=== PATIENT | male | born 1990 | race Caucasian/White ===

== ENCOUNTER 2020-12-22 19:37 | Emergency (ER) | payer BC, SELFPAY ==
--- NOTE | ~2020-12-22 | XR_ITS ---
EXAMINATION: XR TIBIA AND FIBULA, RIGHT CLINICAL INFORMATION: Right leg injury with pain and swelling COMPARISON: None TECHNIQUE: AP and lateral views of the right tibia and fibula were obtained. FINDINGS: The bones and soft tissues are normal. No fracture. No osseous lesions. A small bone island is noted in the lateral tibial metaphysis. XR/XR tibia fibula RT 2V IMPRESSION: No acute disease. No evidence of injury.
[2020-12-22 20:57] VITALS: BP 139/84; PULSE 97; RESP 18; TEMP 37.2; O2SAT 100
[2020-12-22 21:05] VITALS: BP 139/84; PULSE 97; RESP 18; TEMP 37.2; O2SAT 100; BMI 25.7
--- NOTE | 2020-12-22 21:16 | PC.NURSE ---
ICE PACK GIVEN.
--- NOTE | 2020-12-22 21:40 | ED.LOWEXIN ---
HPI - Extremity Injury (Lower) General Chief Complaint: Extremity Injury, Lower Stated Complaint: FALL LEG PAIN Time Seen by Provider: 12/22/20 21:40 Source: patient Mode of arrival: ambulatory History of Present Illness HPI Narrative: 30-year-old male who is presents after a garden cart tilted and hit the medial aspect of his right lower extremity a number of hours ago and states his last tetanus was over 7 years ago. Otherwise, patient endorses full range of motion and able to bear weight. Related Data Allergies Allergy/AdvReac Type Severity Reaction Status Date / Time No Known Allergies Allergy Verified 12/22/20 21:05 Review of Systems Review of Systems: Pertinent positives and negatives as stated in HPI 10 point review systems is otherwise negative. PMFSH Past Medical History Source: nursing notes reviewed Medical History No known health problems Patellar sleeve fracture of left knee Social History Social History Advance Directives: No Advance Directives Information Provided: No Physical Exam Vital Signs: Vital Signs: Last Vital Signs Temp 99.0 F 12/22/20 21:05 Pulse 97 12/22/20 21:05 Resp 18 12/22/20 21:05 BP 139/84 12/22/20 21:05 Pulse Ox 100 12/22/20 21:05 Body Mass Index 25.7 VITAL SIGNS: Reviewed. GENERAL: Well developed, well nourished, in no acute distress. HEAD: Normocephalic/atraumatic EYES: PERRLA, EOMI OROPHARYNX: no oral lesions noted, posterior pharynx clear NECK: Supple, no adenopathy LUNGS: Normal breath sounds. No adventitious sounds or accessory muscle use. SpO2<100> CARDIOVASCULAR: Regular rate and rhythm without noted murmurs ABDOMEN: Soft, non-tender, non-distended with bowel sounds. RIGHT LOWER EXTREMITY: Superficial abrasions to medial aspect of lower leg, capillary refill less than 3 seconds, hemostatic NEUROLOGIC: Alert and oriented x 4. Course Course Course Narrative: 30-year-old male with history and clinical presentation consistent with superficial abrasions to right lower extremity without evidence fracture or involvement of deep structures. Patient will receive Tdap here in the emergency department and upon negative imaging will be discharged home and given follow-up with his primary care provider. Review of imaging is negative for any acute fractures or dislocations. Discharge Plan Discharge Clinical Impression: Abrasion Patient Disposition: Home, Self-Care Instructions: Diphtheria/Acellular Pertussis/Tetanus Booster Vaccine (Tdap) (By..., Abrasion (ED) Additional Instructions: Recommend taking [id number] Tylenol/ibuprofen as directed on the outside packaging for pain control. Follow-up with your primary care provider in the next 2-3 days for re-evaluation. Do not hesitate to return to the emergency department should you develop any worsening redness, swelling, pain on weight-bearing, purulence drainage Referrals: Physician,Unknown [Primary Care Provider] - 2 days
[2020-12-22] MEDS: Diphth,Pertus(ACell),Tet Adult 0.5 ML SYRINGE IM (22:07)
[2020-12-22] MEDS: Bacitracin Oint 14 GM TUBE 1 APPL TOPICAL (22:08)
== END 2020-12-22 22:13 | disposition home or self-care (01) ==
PROVIDERS: Emergency Provider Student in an Organized Health Care Education/Training Program
DX: S80.811A Abrasion, right lower leg, initial encounter (principal); M79.604 Pain in right leg; W27.8XXA Contact with other nonpowered hand tool, initial encounter; Y93.H2 Activity, gardening and landscaping; Y92.007 Garden or yard of unspecified non-institutional (private) residence as the place of occurrence of the external cause; Y99.9 Unspecified external cause status
CPT/HCPCS: 73590; 90471; 90715; 99284

== ENCOUNTER 2022-11-13 18:29 | Emergency (ER) | payer BC, SELFPAY ==
--- NOTE | ~2022-11-13 | XR_ITS ---
EXAMINATION: XR WRIST, RIGHT XR HAND, RIGHT CLINICAL INFORMATION: Fourth and fifth digit pain, status post punching a wall. COMPARISON: None available. TECHNIQUE: 4 views of the right wrist/hand. FINDINGS: No acute fractures or subluxation. No significant degenerative changes, erosions or chondrocalcinosis. No unexpected radiopaque foreign bodies. XR/XR hand wrist RT IMPRESSION: No acute fractures or subluxation.
--- NOTE | 2022-11-13 18:44 | ED_ITS ---
HPI - Extremity Injury (Upper) General Chief Complaint: Extremity Injury, Upper <JULIA Browne - Last Filed: 11/13/22 18:47> Stated Complaint: hand injury, broken finger? <JULIA Browne - Last Filed: 11/13/22 18:47> Time Seen by Provider: 11/13/22 19:45 <JULIA Browne - Last Filed: 11/13/22 18:47> Source: patient <Ana Lopez MD - Last Filed: 11/13/22 20:02> Mode of arrival: ambulatory <Ana Lopez MD - Last Filed: 11/13/22 20:02> Limitations: no limitations <Ana Lopez MD - Last Filed: 11/13/22 20:02> History of Present Illness HPI narrative: 32-year-old male right handed came in for evaluation of right hand pain after punched a wall. Patient is going through a divorce and stressful events with his patient got angry today and punched a wall with his right hand causing pain to the 4th and 5th MCP joints pain, patient still able to move his right hand, no SI, no HI, no hallucination. Patient admitted that punching the wall was over reacting to the situation he usually can control himself better than this. <Ana Lopez MD - Last Filed: 11/13/22 20:02> Related Data Home Medications: Previous Rx's Medication Instructions Recorded hydroxyzine pamoate 25 mg capsule 25 mg PO TID PRN anxiety 14 days 11/06/22 (Vistaril) #42 caps mirtazapine 7.5 mg tablet 7.5 mg PO BEDTIME 30 days #30 tabs 11/06/22 <JULIA Browne - Last Filed: 11/13/22 18:47> Allergies/Adverse Reactions: Allergies Allergy/AdvReac Type Severity Reaction Status Date / Time No Known Allergies Allergy Verified 11/13/22 18:45 <JULIA Browne - Last Filed: 11/13/22 18:47> Review of Systems Review of Systems: All other systems are reviewed and are negative Constitutional: Reports as per HPI and Reports no additional constitutional complaints Eyes: Reports as per HPI and Reports no additional eye complaints Reports system reviewed and no additional complaints, except as documented Cardiovascular: Reports as per HPI and Reports no additional cardiovascular complaints Respiratory: Reports as per HPI and Reports no additional respiratory complaints Gastrointestinal: Reports as per HPI and Reports no additional gastrointestinal complaints Genitourinary: Reports no additional female genitourinary complaints Musculoskeletal: Reports no additional musculoskeletal complaints Skin/Breast: Reports system reviewed and no additional complaints, except as docu Psychiatric: Reports no additional psychiatric complaints Endocrine: Reports no additional endocrine complaints Hematologic/Lymphatic: Reports no additional hematologic/lymphatic complaints Allergic/Immunologic: Reports no additional allergic/immunologic complaints Reports system reviewed and no additional complaints, except as documented and Reports Abnormal speech present <Ana Lopez MD - Last Filed: 11/13/22 20:02> [facility] Past Medical History Medical History: Medical History No known health problems Patellar sleeve fracture of left knee <JULIA Browne - Last Filed: 11/13/22 18:47> Social History Social History: Social History Patient Tobacco Use Status: Never used Tobacco Advance Directives: No Advance Directives Information Provided: No <JULIA Browne - Last Filed: 11/13/22 18:47> Physical Exam Vital Signs: Vital Signs: Last Vital Signs Temp 98.2 F 11/13/22 18:45 Pulse 92 11/13/22 18:45 Resp 18 11/13/22 18:45 BP 152/97 H 11/13/22 18:45 Pulse Ox 99 11/13/22 18:45 O2 Del Method 11/13/22 18:45 BMI result Body Mass Index 21.2 <JULIA Browne - Last Filed: 11/13/22 18:47> Vital Signs: Last Vital Signs Temp 98.2 F 11/13/22 18:45 Pulse 92 11/13/22 18:45 Resp 18 11/13/22 18:45 BP 152/97 H 11/13/22 18:45 Pulse Ox 99 11/13/22 18:45 O2 Del Method 11/13/22 18:45 BMI result Body Mass Index 21.2 Vital signs have been reviewed as appeared to be correct. Blood pressure normal. Heart rate normal. Respiration rate normal. Temperature normal. Oxygen saturation normal. <Ana Lopez MD - Last Filed: 11/13/22 20:02> Appearance: Alert. Oriented X3. No acute distress. Head: Normal external exam. Normocephalic. Atraumatic. No Mathis signs noted. No raccoon eyes noted Eyes: PERRLA. EOMI. Conjunctiva and sclera normal. Eyelids normal. ENT: TM's Normal. Pharynx normal. Uvula midline. Moist mucous membranes. No trismus noted. No drooling noted. No muffled voice noted. Neck: Normal inspection. Neck supple. FROM. No adenopathy. Thyroid Normal. No meningeal signs. No neck mass noted. CVS: Normal heart rate and rhythm. Heart sound normal. No murmurs noted. Pulses normal throughout. Respiratory: No respiratory distress. Painless inspiration. Breath sounds normal. No wheezes/rales/rhonchi noted. Chest nontender. No accessory muscle usage noted or decreased air movement noted. Abdomen: Soft and nontender. Bowel sounds normal in all 4 quadrants. No distention noted. No organomegaly noted. No visible injury noted. Back: No CVA tenderness. Full range of motion noted. Skin: Skin warm and dry. Normal skin color. Normal skin turgor. No rashes/lesions/lacerations noted. Extremities: Mild tenderness over the right 4th and 5th MCPs with no deformity or step-off, neurovascularly intact. Neuro: Oriented X 3. Cranial nerve exam: II-XII are grossly intact No motor deficit. No sensory deficit. Reflexes normal. <Ana Lopez MD - Last Filed: 11/13/22 20:02> Course Course Course Narrative: RME--32yo M w/no sig PMHx presenting to ED c/o R hand pain s/p punching wall [employer]. +ttp to R 4-5th metacarpals. NV intact. Finger to thumb opposition intact XRs ordered <JULIA Browne - Last Filed: 11/13/22 18:47> Medical Decision Making Differential Diagnosis Differential Diagnoses: The differential diagnosis associated with the presentation includes (Right hand fracture, contusion, psychosis, depression, anger control problems) <Ana Lopez MD - Last Filed: 11/13/22 20:02> Independent Interpretation I performed an independent interpretation of an: Plain X-Ray (Right hand: No acute fracture, subluxation.) <Ana Lopez MD - Last Filed: 11/13/22 20:02> Radiology Impression Discussion of test interpretation with radiology: I have reviewed the radiologist's reading. <Ana Lopez MD - Last Filed: 11/13/22 20:02> Discharge Plan Discharge Clinical Impression: Contusion of hand, right <JULIA Browne - Last Filed: 11/13/22 18:47> Patient Disposition: Home, Self-Care <JULIA Browne - Last Filed: 11/13/22 18:47> Instructions: Contusion in Adults (ED) <JULIA Browne - Last Filed: 11/13/22 18:47> Additional Instructions: Take ibuprofen 200 mg tablets [id number] every 6 hours if needed for pain. <JULIA Browne - Last Filed: 11/13/22 18:47> Prescriptions: No Action mirtazapine 7.5 mg tablet 7.5 mg PO BEDTIME 30 Days Qty: 30 0RF hydroxyzine pamoate [Vistaril] 25 mg capsule 25 mg PO TID PRN (Reason: anxiety) 14 Days Qty: 42 0RF <JULIA Browne - Last Filed: 11/13/22 18:47> Stand Alone Forms: Work/School Release <JULIA Browne - Last Filed: 11/13/22 18:47>
[2022-11-13 18:45] VITALS: BP 152/97; PULSE 92; RESP 18; TEMP 36.8; O2SAT 99; BMI 21.2
== END 2022-11-13 20:37 | disposition home or self-care (01) ==
PROVIDERS: Emergency Provider Emergency Medicine; PCP Internal Medicine
DX: S60.221A Contusion of right hand, initial encounter (principal); M79.641 Pain in right hand; X58.XXXA Exposure to other specified factors, initial encounter; Y93.9 Activity, unspecified; Y92.9 Unspecified place or not applicable; Y99.9 Unspecified external cause status
CPT/HCPCS: 73110; 73130; 99282; 99283

== ENCOUNTER 2023-01-04 08:35 | Emergency (ER) | payer BC, SELFPAY ==
[2023-01-04 08:40] VITALS: BP 126/81; PULSE 90; RESP 16; TEMP 37.2; O2SAT 98; BMI 24.8
--- NOTE | 2023-01-04 09:01 | ED_ITS ---
HPI - General Adult General Chief complaint: Wound/Laceration Stated complaint: L hand lac Time Seen by Provider: 01/04/23 09:00 Source: patient Mode of arrival: ambulatory Limitations: no limitations History of Present Illness HPI narrative: Patient is a 32 year old assigned male at with no reported medical history presenting to the emergency department today with a left hand laceration. Patient states that he was breaking down a stove when it cut his left hand. Patient denies any dizziness, lightheadedness, abdominal pain, nausea, vomiting, fever, chills, blurry vision, double vision, loss of vision, chest pain, difficulty breathing, shortness of breath, back pain, night sweats, pain with urination, increased urinary frequency, increased urinary urgency, blood in his urine or stool, syncope or a near syncopal episode, bowel incontinence, bladder incontinence, bowel retention, bladder retention, or any other complaints at this time. Onset (ago): hour(s) Location: left and upper extremity Radiation: non-radiation Severity: mild Severity scale (1-10): 3 Quality: aching and dull Pain Consistency: constant Relieving factors: none Exacerbating factors: none Associated symptoms: denies other symptoms Treatments prior to arrival: none Related Data Previous Rx's Medication Instructions Recorded cephalexin 500 mg capsule 500 mg PO Q6H 7 days #28 caps 01/04/23 Allergies Allergy/AdvReac Type Severity Reaction Status Date / Time No Known Allergies Allergy Verified 11/29/22 12:18 Review of Systems Constitutional: Constitutional: Reports no additional constitutional complaints, Denies chills, Denies fever(s) and Denies night sweats Eyes: Eyes: Reports no additional eye complaints, Denies blurry vision, Denies change in vision, Denies diplopia, Denies eye discharge, Denies loss of vision and Denies eye pain ENT: Denies dizziness Cardiovascular: Cardiovascular: Reports no additional cardiovascular complaints, Denies chest pain, Denies lightheadedness, Denies Loss of Consciousness and Denies dyspnea Respiratory: Respiratory: Reports no additional respiratory complaints and Denies dyspnea Gastrointestinal: Gastrointestinal: Reports no additional gastrointestinal complaints, Denies abdominal pain, Denies melena, Denies hematochezia, Denies change in bowel habits and Denies change in stool character Genitourinary: Genitourinary: Reports no additional male genitourinary complaints, Denies hematuria, Denies oliguria, Denies difficulty urinating, Denies dysuria, Denies urinary frequency, Denies urinary hesitancy, Denies urinary incontinence and Denies urinary urgency Musculoskeletal: Musculoskeletal: Reports no additional musculoskeletal complaints, Denies numbness and Denies tingling Comments: left hand laceration Neurologic: Denies dizziness, Denies loss of vision, Denies numbness and Denies tingling Psychiatric: Psychiatric: Reports no additional psychiatric complaints Endocrine: Endocrine: Reports no additional endocrine complaints Hematologic/Lymphatic: Hematologic/Lymphatic: Reports no additional hematologic/lymphatic complaints Allergic/Immunologic: Allergic/Immunologic: Reports no additional allergic/immunologic complaints [facility] Past Medical History Attestation statement: The following information was validated with the patient. Source: old records reviewed and nursing notes reviewed Medical History No known health problems Patellar sleeve fracture of left knee Family History Family History Father Brain aneurysm Mother Colon cancer Breast cancer Social History Social History Household Members Other:: exercise weekly, Housing: House Patient Tobacco Use Status: Never used Tobacco e-Cigarette/Vaping Use: Never Used Advance Directives: No Advance Directives Information Provided: Yes Current occupational status: employed Cognitive needs: No Hearing needs: No Vision needs: No Physical Exam ED Vital Signs: Vital Signs - 24 hr 01/04/23 08:40 Temperature 99 F Pulse Rate 90 Respiratory Rate 16 Blood Pressure 126/81 Pulse Oximetry 98 Oxygen Delivery Method Room Air BMI result Body Mass Index 24.8 Const General: cooperative, no acute distress, alert and awake Nutritional Appearance: well nourished Orientation/consciousness: patient oriented x3 Limitations: no limitations HENMT Head: Yes normal to inspection and Yes atraumatic Ears: hearing grossly normal bilaterally and external ears normal General nose exam: Normal external nose present, no nasal discharge noted and no epistaxis Face and sinus: Yes normal facial exam, No abrasion and No laceration Mouth: Normal oral and palatal mucosa present, no drooling and no muffled voice Eyes General: appearance normal, both eyes and all related structures Periorbital: periorbital findings normal Eyelids: Yes eyelids normal Conjunctivae: conjunctivae normal Pupils: Equal, round and reactive pupils present EOM: EOMs intact bilaterally Neck Neck: Yes normal visual inspection, Yes full ROM and Yes no lymphadenopathy Chest Chest palpation & inspection: normal inspection of the chest Resp Effort & Inspection: normal respiratory effort and able to speak in complete sentences GI Inspection: Yes normal to inspection Neuro General: patient oriented x3 and moves all extremities Cranial nerves: Yes Equal, round and reactive pupils present Cognition (Neuro): normal cognition Motor exam (neuro): 5/5 motor strength present throughout Sensory Exam: Normal double simultaneous stimulation for sensation Coordination: [id number] test normal Extrem Other: 2cm laceration of the left web space between the thumb and index finger extending from palmar to dorsal surfaces, no active bleeding. General: Yes full ROM and Yes capillary refill normal Psych Appearance: grossly normal Mental Status: mental status grossly normal Affect: normal affect Attitude: cooperative Thought process: Normal thought process present Thought content: Normal thought content present Insight: Good insight present (Psych) Medications Administered Discontinued Medications Generic Name Dose Route Start Last Admin Trade Name Tristan PRN Reason Stop Dose Admin Lidocaine HCl 5 ml 01/04/23 09:05 01/04/23 09:11 Lidocaine Hcl 1 % Mpf 5 Ml Vial SUBCUT 01/04/23 09:06 5 ml ONCE ONE Administration Procedures Laceration Laceration 1: Site: hand Side (If applicable): left Size (cm): 2 Description: irregular Depth: simple, single layer Local Anesthetic: lidocaine 1% Amount of anesthesia used (mL): 5 Pre-repair: wound explored, irrigated extensively and deep structures intact Skin layer closed with: other (prolene) Size (cm): 4-0 Number of sutures: 5 (and dermabond) Technique: simple, interrupted Medical Decision Making Medical Decision Making MDM Narrative: Patient is a 32 year old assigned male at with no reported medical history presenting to the emergency department today with a left hand laceration. Patient's physical exam was as noted in the physical exam portion of this chart. Patient is up to date on his tetanus. I explained my physical exam findings to the patient. I answered all questions asked by the patient. Patient's laceration was repaired, per procedure note, without incident. Patient's PMS was intact prior to and after laceration repair. I stressed the importance of the patient taking his medication as prescribed. I stressed the importance of the patient following up with his primary care provider. I stressed the importance of the patient having his sutures removed in 7-10 days. I stressed the importance of the patient NOT soaking the repaired area. I stressed the importance of the patient returning to the emergency department immediately if his symptoms were to worsen or if he were to develop any dizziness, shortness of breath, difficulty breathing, chest pain, blurry vision, loss of vision, nausea, vomiting, abdominal pain, fever, chills, back pain, or any other complaints. Patient verbalized agreement and understanding with this treatment plan and discharge. Differential Diagnosis Differential Diagnoses: The differential diagnosis associated with the presentation includes hand laceration, hand injury, hand pain Discharge Plan Discharge Clinical Impression: Laceration Patient Disposition: Home, Self-Care Instructions: Care For Your Stitches (DC), Skin Adhesive Care (ED) Additional Instructions: Do NOT soak the sutured area. Have the sutures removed in 7-10 days. Perform daily wound checks and dressing changes. Follow up with your primary care provider. Return to the emergency department immediately if your symptoms worsen or if you develop any dizziness, shortness of breath, difficulty breathing, chest pain, blurry vision, loss of vision, nausea, vomiting, abdominal pain, fever, chills, back pain, or any other complaints. Prescriptions: New cephalexin 500 mg capsule 500 mg PO Q6H 7 Days Qty: 28 0RF Referrals: Kylie Enriquez MD [Primary Care Provider] - Stand Alone Forms: Work/School Release Print Language: Malagasy
[2023-01-04] MEDS: Lidocaine HCl 1 % MPF 5 ML VIAL SUBCUT (09:11)
[2023-01-04] MEDS: HYDROcodone Bit/Acetam 5/325 TABLET 1 TAB PO (09:43)
[2023-01-04] MEDS: Ondansetron ODT 4 MG TAB.RAPDIS TRANSLINGU (09:54)
== END 2023-01-04 10:00 | disposition home or self-care (01) ==
PROVIDERS: Emergency Provider Emergency Medicine; PCP Internal Medicine
DX: S61.412A Laceration without foreign body of left hand, initial encounter (principal); W26.8XXA Contact with other sharp object(s), not elsewhere classified, initial encounter; Y93.89 Activity, other specified; Y92.010 Kitchen of single-family (private) house as the place of occurrence of the external cause; Y99.9 Unspecified external cause status
CPT/HCPCS: 12001; 99283; 99284

== ENCOUNTER 2023-11-26 06:05 | Emergency (ER) | payer BC, SELFPAY ==
[2023-11-26 06:18] VITALS: BP 115/80; PULSE 98; RESP 18; TEMP 37.5; O2SAT 98; BMI 26.6
[2023-11-26 07:28] LABS: COVID-19 Test Negative (Negative); IDNOW Serial# 08D9AD1C; IDNOW Serial# 152EDE1D; Influenza A Negative (Negative); Influenza B2 Negative (Negative)
[2023-11-26 08:09] VITALS: BP 125/86; PULSE 80; RESP 14; TEMP 36.7; O2SAT 98
--- NOTE | 2023-11-26 09:37 | ED_ITS ---
HPI - Nausea/Vomiting/Diarrhea General Chief complaint: Nausea/Vomiting/Diarrhea Stated complaint: vomiting Time Seen by Provider: 11/26/23 09:16 Source: patient Mode of arrival: ambulatory Limitations: no limitations History of Present Illness HPI Narrative: 33-year-old male history of anxiety presents with nausea, vomiting, diarrhea since yesterday p.m. still present, reports he does not feel like he can keep anything down. Yesterday he had some epigastric discomfort when he was vomiting however this has subsided. He is not reporting any abdominal pain. Denies recent sick contacts. Denies abnormal foods or new foods. Denies hematemesis, hematochezia, melena, headache, vision changes, dizziness, fevers, chills, recent sick contacts, chest pain, shortness of breath. Related Data Previous Rx's Medication Instructions Recorded cephalexin 500 mg capsule 500 mg PO Q6H 7 days #28 caps 01/04/23 ondansetron 4 mg disintegrating 4 mg PO Q6H PRN nausea and 11/26/23 tablet vomiting #14 tabs Allergies Allergy/AdvReac Type Severity Reaction Status Date / Time acetaminophen [From Tylenol] Allergy Rash Verified 11/26/23 06:17 Review of Systems 2 Review of Systems: Constitutional : No Weight loss, No Fever, No Chills, No Fatigue, No Malaise ENT/Mouth : No sore throat, No Rhinorrhea Eyes: No Eye Pain, No Swelling, No Redness Cardiovascular : No Chest Pain, No SOB, No Dyspnea on Exertion, No Orthopnea, No Edema, No Palpitations Respiratory : No Cough, No Sputum, No Wheezing Gastrointestinal : No Nausea, No Vomiting, No Diarrhea, No Constipation, No abdominal Pain, No Hematochezia, No Melena Genitourinary : No Dysuria, No Urinary Frequency, No Hematuria, Musculoskeletal : No joint pain, No Myalgias, No Joint Swelling Skin : No Skin Lesions, No rash Neuro : No Weakness, No Numbness, No Dizziness, No Headache Psych : No Anxiety/Panic, No Depression All other systems reviewed and are negative Yes all other systems are reviewed and are negative [facility] Past Medical History Attestation statement: The following information was validated with the patient. Source: old records reviewed and nursing notes reviewed Medical History Patellar sleeve fracture of left knee No known health problems Family History Family History Father Brain aneurysm Mother Colon cancer Breast cancer Social History Social History Household Members Other:: exercise weekly, Housing: House Patient Tobacco Use Status: Never used Tobacco e-Cigarette/Vaping Use: Never Used Advance Directives: No Advance Directives Information Provided: No Current occupational status: employed Cognitive needs: No Hearing needs: No Vision needs: No Physical Exam 2 Vital Signs: Vital Signs: Last Vital Signs Temp 98.1 F 11/26/23 08:09 Pulse 80 11/26/23 08:09 Resp 14 11/26/23 08:09 BP 125/86 11/26/23 08:09 Pulse Ox 98 11/26/23 08:09 O2 Del Method Room Air 11/26/23 08:09 BMI result Body Mass Index 26.6 vss Appearance: Alert.? Oriented X3.? No acute distress.? Head: Normocephalic, atraumatic, no step-offs or deformities Eyes: Pupils equal, round and reactive to light.? Neck: Normal inspection.? Neck supple.? CVS: Normal heart rate and rhythm.? Pulses normal.? Respiratory: No respiratory distress.? Breath sounds normal.? Abdomen: Soft and nontender.? Normoactive bowel sounds. Negative Rovsing, McBurney's, Galarza's. Skin: Skin warm and dry.? Normal skin color.? Normal skin turgor.? Extremities: No lower extremity edema.? No calf ttp. 5/5 strength to bilateral upper and lower extremities Neuro: Oriented X 3.? No motor deficit.? No sensory deficit. CN 2-12 intact Course Reevaluation(s) Reevaluation #1: Labs with leukocytosis and shift likely reactive secondary to nausea and vomiting. Chemistry unremarkable. Flu, COVID negative. Again no discomfort with palpation of abdomen. No indication for imaging. I suspect this is viral in nature. Patient like to go home offered a CT scan patient does not want it. Educated patient on diagnosis and treatment plan, answered all question, patient verbalizes understanding. At this time patient will be discharged home, advised to return with new or worsening symptoms. Educated on worrisome signs and symptoms and when to return. At this time I feel comfortable discharge home. Time: 10:38 Medical Decision Making Medical Decision Making [facility] Narrative: 0938 33-year-old male presents with nausea, vomiting, diarrhea since last night at 20:00 had epigastric pain however it resolved. Physical examination benign. No abdominal tenderness on exam. Negative Galarza's, McBurney's, Rovsing sign. History and physical exam concerning for viral illness versus gastroenteritis versus food poisoning versus norovirus. Unlikely acute abdomen, gastric ulcer, GERD, acute abdomen, appendicitis, cholecystitis, diverticulitis, obstruction. Plan at this time will obtain viral testing and basic labs. No indication for imaging as patient does not have tenderness on exam. Differential Diagnosis Differential Diagnoses: The differential diagnosis associated with the presentation includes History and physical exam concerning for viral illness versus gastroenteritis versus food poisoning versus norovirus. Unlikely acute abdomen, gastric ulcer, GERD, acute abdomen, appendicitis, cholecystitis, diverticulitis, obstruction. Admission/Observation Consideration of admission/observation: Escalation of care including admission/observation considered Unlikely Lab Data [facility] Lab Attestation statement: I reviewed the patient's lab results. 11/26/23 09:46 11/26/23 09:46 Labs: Lab Results 11/26/23 11/26/23 Range/Units 07:04 09:46 WBC 11.0 H (4.8-10.8) X10*3/uL RBC 5.50 (4.60-5.80) X10*6/uL Hgb 16.5 (14.0-18.0) g/dl Hct 46.5 (42.0-52.0) % MCV 84.5 (80.0-98.0) fL MCH 30.0 (27.0-33.0) pg MCHC 35.5 (31.0-36.0) g/dl RDW 12.3 (11.0-16.0) % Plt Count 178 (160-400) X10*3/uL MPV 10.2 (9.4-12.4) fL Immature Gran % (Auto) 0.2 (0.0-0.4) % Neut % (Auto) 91.3 H (45-73) % Lymph % (Auto) 3.9 L (20-40) % Spencer % (Auto) 4.2 (2-11) % Eos % (Auto) 0.0 (0-4) % Baso % (Auto) 0.4 (0-2) % Lymph # (Auto) 0.4 L (1.2-4.9) X10*3/uL Spencer # (Auto) 0.5 (0.1-1.2) X10*3/uL Eos # (Auto) 0.0 (0.0-0.4) X10*3/uL Baso # (Auto) 0.0 (0.0-0.2) X10*3/uL Abs Immat Gran (auto) 0.02 (0.00-0.03) X10*3/uL Absolute Neuts (auto) 10.1 H (2.0-8.3) x10*3/uL Absolute Nucleated RBC 0.000 (0.0-0.012) X10*3/uL Nucleated RBC % (auto) 0.0 (0.0-0.2) /100WBC Smear Tech's Comments VERIFIED Sodium 138 (135-145) mmol/L Potassium 4.4 (3.3-5.1) mmol/L Chloride 104 (96-108) mmol/L Carbon Dioxide 28 (22-29) mmol/L Anion Gap 10 L (12-20) BUN 13 (9-16) mg/dL Creatinine 1.09 (0.5-1.4) mg/dL Estim Creat Clear Calc 94.5 Estimated GFR > 60 Random Glucose 120 H (60-115) mg/dL Calcium 9.1 (8.4-10.2) mg/dL Total Bilirubin 0.9 (0.0-1.0) mg/dL AST 19 (5-37) U/L ALT 20 (0-40) U/L Alkaline Phosphatase 70 (39-117) U/L Total Protein 7.5 (6.5-8.0) g/dL Albumin 4.5 (3.5-5.0) g/dL Lipase 13 (8-78) U/L COVID-19 ([facility]) Negative (Negative) COVID-19 Clin Com See Note Influenza Type A (THAI) Negative (Negative) Influenza Type B (THAI) Negative (Negative) Influenza A & B Note See Note Tests considered The following testing was considered but not selected: No indication for imaging CT abd or ultrasound as patient does not have tenderness on exam. Prescription Management I considered prescription management with: Other (zofran ) Chronic Conditions Patient?s care impacted by: Other (anxiety) Critical Care Time Critical Care Time Critical Care Time: No Discharge Plan Discharge Clinical Impression: Viral illness, Nausea & vomiting, Diarrhea Patient Disposition: Home, Self-Care Instructions: Acute Nausea and Vomiting (ED), Acute Diarrhea (ED), Viral Syndrome (ED), Nutrition Tips for Relief of Diarrhea (ED) Additional Instructions: Take your medications as prescribed. If you were prescribed antibiotics today, it is important that you take your medication to their entirety, do not skip any doses, do not finish them early. Follow-up with your primary care provider this week. Return to the emergency department with new or worsening symptoms. Such as fevers, chills, chest pain, shortness of breath, nausea, vomiting, dizziness, headache, vision changes, lethargy In case of emergency call 911 Prescriptions: New ondansetron 4 mg tablet,disintegrating 4 mg PO Q6H PRN (Reason: nausea and vomiting) Qty: 14 0RF No Action cephalexin 500 mg capsule 500 mg PO Q6H 7 Days Qty: 28 0RF Referrals: Kylie Enriquez MD [Primary Care Provider] - 2 days Stand Alone Forms: Work/School Release
[2023-11-26 09:52] LABS: Basophils Percent Auto 0.4 % (0-2); Hematocrit 46.5 % (42.0-52.0); Hemoglobin 16.5 g/dl (14.0-18.0); Imm Gran Abs Auto 0.02 X10*3/uL (0.00-0.03); Imm Gran Pct Auto 0.2 % (0.0-0.4); Lymphocytes Absolute Auto 0.4 X10*3/uL (1.2-4.9); Lymphocytes Percent Auto 3.9 % (20-40); MANUAL DIFF FLAG SCAN; Mean Corpuscular HGB Conc 35.5 g/dl (31.0-36.0); Mean Corpuscular Volume 84.5 fL (80.0-98.0); Mean Platelet Volume 10.2 fL (9.4-12.4); Monocytes Absolute Auto 0.5 X10*3/uL (0.1-1.2); Monocytes Percent Auto 4.2 % (2-11); Neutrophils Absolute Auto 10.1 x10*3/uL (2.0-8.3); Neutrophils Percent Auto 91.3 % (45-73); Platelet Count 178 X10*3/uL (160-400); Red Cell Distribution Width 12.3 % (11.0-16.0); SCAN SMEAR FLAG 1
[2023-11-26 10:06] LABS: Alanine Aminotransferase 20 U/L (0-40); Albumin Level 4.5 g/dL (3.5-5.0); Alkaline Phosphatase 70 U/L (39-117); Anion Gap 10 (12-20); Aspartate Amino Transferase 19 U/L (5-37); Bilirubin Total 0.9 mg/dL (0.0-1.0); Blood Urea Nitrogen 13 mg/dL (9-16); Calcium 9.1 mg/dL (8.4-10.2); Carbon Dioxide 28 mmol/L (22-29); Chloride 104 mmol/L (96-108); Creatinine Clr Calc Pharmacy 94.5; Estimated Glomerular Filt Rate > 60; Glucose Random 120 mg/dL (60-115); Lipase 13 U/L (8-78); Potassium 4.4 mmol/L (3.3-5.1); Sodium 138 mmol/L (135-145); Total Protein 7.5 g/dL (6.5-8.0)
[2023-11-26 10:15] LABS: SLIDE REVIEW VERIFIED
[2023-11-26 11:29] VITALS: BP 124/80; PULSE 82; RESP 18; O2SAT 97
[2023-11-26 11:36] VITALS: BP 124/80; PULSE 82; RESP 18; TEMP 36.7; O2SAT 97
== END 2023-11-26 11:37 | disposition home or self-care (01) ==
PROVIDERS: Physician Assistant; Emergency Provider Emergency Medicine Emergency Medical Services; PCP Internal Medicine
DX: B34.9 Viral infection, unspecified (principal); R11.2 Nausea with vomiting, unspecified; R19.7 Diarrhea, unspecified; R10.13 Epigastric pain; D72.829 Elevated white blood cell count, unspecified; Z11.52 Encounter for screening for COVID-19
CPT/HCPCS: 36415; 80053; 83690; 85025; 87502; 87635; 99283

== ENCOUNTER 2023-12-02 12:46 | Outpatient (AMB) | payer BC, SELFPAY ==
[2023-12-02 13:36] VITALS: BP 110/74; PULSE 61; O2SAT 97; BMI 25.4
--- NOTE | 2023-12-02 13:36 | MHC.PC.OV ---
Vital Signs 12/02/23 13:36 Height 5 ft 9 in Weight 172 lb BMI 25.4 BP 110/74 Blood Pressure Location Lt brachial Position Sitting Pulse 61 Pulse Source Pulse Oximeter Pulse Oximetry (%) 97 Oxygen Delivery Method Room Air Intake Visit Reasons: PE Intake Note: Pt is here today for PE. Allergies acetaminophen [From Tylenol] Allergy (Verified 12/02/23 13:37) Rash Tobacco use date assessed: 12/02/23 Dental Screening Dental Screen Date: 12/02/23 Did you have a dental visit in the last 12 months?: Yes Did you have a dental problem in the last 6 months where you did not have access to dental care?: No Was dental information given to patient?: Patient has dentist HPI PE HPI Details Pt is for PE. PFSH Medical History Patellar sleeve fracture of left knee No known health problems Surgical History No pertinent past surgical history Family History (Updated 12/02/23 @ 13:59 by Kylie Enriquez MD) Father Brain aneurysm, Onset Age: 50 Mother Colon cancer, Onset Age: 55 Breast cancer Social History Household Members Other:: exercise weekly, Housing: House Patient Tobacco Use Status: Never used Tobacco e-Cigarette/Vaping Use: Never Used service: No Current occupational status: employed Cognitive needs: No Hearing needs: No Vision needs: No Questionnaire PHQ-9 Over the last 2 weeks, how often have you been bothered by any of the following problems? 1. Little interest or pleasure in doing things: not at all 2. Feeling down, depressed, or hopeless: not at all 3. Trouble falling or staying asleep, or sleeping too much: not at all 4. Feeling tired or having little energy: not at all 5. Poor appetite or overeating: not at all 6. Feeling bad about yourself - or that you are a failure or have let yourself or your family down: not at all 7. Trouble concentrating on things, such as reading the newspaper or watching television: not at all 8. Moving or speaking so slowly that other people could have noticed. Or the opposite - being so fidgety or restless that you have been moving around a lot more than usual: not at all 9. Thoughts that you would be better off or of hurting yourself in some way: not at all Total score: 0 Depression Screening Interpretation: Negative Depression Screening Done: Yes Source: Developed by Drs. Fernando Sullivan, Mayra Boogie, Matheus Rosas and colleagues, with an educational alexey from [email or web address]. Thrive Questionnaire Date Thrive assessed: 12/02/23 I am a: Patient What is your living situation today?: I have a steady place to live Within the past 12 months, did the food you bought not last and you didn't have the money to get more?: Never true Within the past 12 months, did you worry whether your food would run out before you got money to buy more?: Never true Do you have trouble paying for medicines?: No Do you have trouble getting transportation to medical appointments?: No Do you have trouble paying your heating and electricity bill?: No Do you have trouble taking care of your child, family member or friend?: No Do you have trouble with day-to-day activities such as bathing, preparing meals, shopping, managing finances, etc.?: No Are you currently unemployed and looking for a job?: No Are you interested in more education?: No Please select the resources that you would like help with: None THRIVE Score: 0 AUDIT C Alcohol Use Questionnaire (AUDIT-C) 1. How often do you have a drink containing alcohol?: Monthly or less 2. How many drinks containing alcohol do you have on a typical day when you are drinking?: 1 or 2 3. How often do you have six or more drinks on one occasion?: Never Total Score: 1 BUFFY-7 AMB Questionnaire BUFFY-7 Date BUFFY - 7 assessed: 12/02/23 Feeling nervous, anxious, or on edge: 0 = Not at all Not being able to stop or control worryin = Not at all Worrying too much about different things: 0 = Not at all Trouble relaxin = Not at all Being so restless that it is hard to sit still: 0 = Not at all Becoming easily annoyed or irritable: 0 = Not at all Feeling afraid as if something awful might happen: 0 = Not at all Total BUFFY-7 score (0-4 normal; 5-9 mild; 10-14 moderate; 15-21 severe): 0 Source: Developed by Drs. Fernando Sullivan, Mayra Boogie, Matheus Rosas and colleagues, with an educational alexey from [email or web address]. BUFFY-7 Assessment Billing BUFFY-7 Assessment Tool: BUFFY-7 Assessment 08535 Review of Systems Const All systems reviewed & are unremarkable except as noted in HPI and below Reports no additional complaints Eyes Reports no additional complaints ENT Reports no additional complaints Card Reports no additional complaints Resp Reports no additional complaints GI Reports no additional complaints Reports no additional complaints Physical exam (Primary Care) Vital Signs: Last Vital Signs Pulse 61 12/02/23 13:36 BP 110/74 12/02/23 13:36 Pulse Ox 97 12/02/23 13:36 Oxygen Delivery Method Room Air 12/02/23 13:36 BMI result Body Mass Index 25.4 Tobacco/Smoking Status: Tobacco use Status Tobacco use date assessed 12/02/23 12/02/23 13:41 Patient Tobacco Use Status Never used Tobacco 12/02/23 13:41 e-Cigarette/Vaping Use Never Used 12/02/23 13:41 Depression Screening Interpretation: Negative Thrive Assessment: Date of Thrive Assessment Date Thrive assessed 11/29/22 12/02/23 13:41 Const General: no acute distress HENMT Head: Yes normal to inspection Face and sinus: Yes normal facial exam Throat: Yes posterior oropharynx normal Eyes General: appearance normal, both eyes and all related structures Neck Neck: Yes no lymphadenopathy and Yes supple Resp Effort & Inspection: normal respiratory effort Auscultation: clear to auscultation bilaterally Cardio Rhythm: regular rhythm Heart sounds: S1 normal heart sound present and S2 normal heart sound present GI Inspection: Yes normal to inspection Palpation (GI): Soft to palpation Percussion: Yes normal to percussion Auscultation: normal bowel sounds Assessment and Plan Assessment & Plan (1) Annual physical exam: Code(s): Z00.00 - Encounter for general adult medical examination without abnormal findings Plan: WELL-BALANCED DIET REGULAR PHYSICAL ACTIVITY DISCUSSED WITH THE PATIENT. HE DECLINED FASTING BLOOD WORK Coding Level of Care Code Est Pt Prev Care 18-39y(00512) Diagnoses Annual physical exam Z00.00 Additional Codes BUFFY-7 Assessment Billing - BUFFY-7 Assessment Tool: BUFFY-7 Assessment 88142 ([id number])
== END 2023-12-02 14:02 | disposition home or self-care (01) ==
PROVIDERS: Visit Provider Internal Medicine
DX: Z00.00 Encounter for general adult medical examination without abnormal findings (principal)
CPT/HCPCS: 99395

== ENCOUNTER 2024-08-12 06:06 | Emergency (ER) | payer BC, SELFPAY ==
[2024-08-12 06:37] VITALS: BP 139/86; PULSE 89; RESP 20; TEMP 37.1; O2SAT 100; BMI 25.1
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
[2024-08-12] MEDS: Bacitracin Oint 0.9 GM PACKET 1 APPL TOPICAL (07:26)
[2024-08-12] MEDS: Lidocaine HCl 1 % MPF 5 ML VIAL INFILTRATI (07:26)
[2024-08-12 07:44] VITALS: BP 139/86; PULSE 89; RESP 20; TEMP 36.6; O2SAT 100
== END 2024-08-12 07:51 | disposition home or self-care (01) ==
PROVIDERS: Emergency Provider Student in an Organized Health Care Education/Training Program
DX: S01.412A Laceration without foreign body of left cheek and temporomandibular area, initial encounter (principal); W22.8XXA Striking against or struck by other objects, initial encounter; Y93.89 Activity, other specified; Y92.017 Garden or yard in single-family (private) house as the place of occurrence of the external cause; Y99.9 Unspecified external cause status
CPT/HCPCS: 12011; 99284; J2003

== ENCOUNTER 2025-01-03 13:41 | Outpatient (AMB) | payer BC, SELFPAY ==
[2025-01-03 14:04] VITALS: BP 114/72; PULSE 62; RESP 18; TEMP 37; O2SAT 99; BMI 25.5
--- NOTE | 2025-01-03 14:04 | A.OFFPC_ITS ---
Vital Signs 01/03/25 14:04 Height 5 ft 9 in Weight 173 lb BMI 25.5 BP 114/72 Blood Pressure Location Rt brachial Position Sitting Respiration 18 Pulse 62 Pulse Source Pulse Oximeter Temp 98.6 F Temp Source Oral Pulse Oximetry (%) 99 Oxygen Delivery Method Room Air Intake Visit Reasons: PE Intake Note: Pt is here today for PE. Allergies acetaminophen [From Tylenol] Allergy (Verified 01/03/25 14:05) Rash Medication List - Last Reconciled 01/03/25 by Kylie Enriquez MD No Known Home Meds Tobacco use date assessed: 01/03/25 Dental Screening Dental Screen Date: 01/03/25 Did you have a dental visit in the last 12 months?: Yes Did you have a dental problem in the last 6 months where you did not have access to dental care?: No Was dental information given to patient?: Patient has dentist HPI PE HPI Details Pt presents for PE. PFSH Medical History Patellar sleeve fracture of left knee No known health problems Surgical History No pertinent past surgical history Family History Father Brain aneurysm, Onset Age: 50 Mother Colon cancer, Onset Age: 55 Breast cancer Social History (Updated 01/03/25 @ 15:12 by Kylie Enriquez MD) Household Members Other:: exercise weekly, , 3 daughters (under 10) Housing: House Patient Tobacco Use Status: Never used Tobacco e-Cigarette/Vaping Use: Never Used service: No Current occupational status: employed Cognitive needs: No Hearing needs: No Vision needs: No Questionnaire PHQ-9 Over the last 2 weeks, how often have you been bothered by any of the following problems? 1. Little interest or pleasure in doing things: not at all 2. Feeling down, depressed, or hopeless: not at all 3. Trouble falling or staying asleep, or sleeping too much: not at all 4. Feeling tired or having little energy: not at all 5. Poor appetite or overeating: not at all 6. Feeling bad about yourself - or that you are a failure or have let yourself or your family down: not at all 7. Trouble concentrating on things, such as reading the newspaper or watching television: not at all 8. Moving or speaking so slowly that other people could have noticed. Or the opposite - being so fidgety or restless that you have been moving around a lot more than usual: not at all 9. Thoughts that you would be better off or of hurting yourself in some way: not at all Total score: 0 Depression Screening Interpretation: Negative Depression Screening Done: Yes 88746 - PHQ-9 Billing: Yes Source: Developed by Drs. Fernando Sullivan, Mayra Boogie, Matheus Rosas and colleagues, with an educational alexey from [employer]. Thrive Questionnaire Date Thrive assessed: 01/03/25 I am a: Patient What is your living situation today?: I have a steady place to live Within the past 12 months, did the food you bought not last and you didn't have the money to get more?: Never true Within the past 12 months, did you worry whether your food would run out before you got money to buy more?: Never true Do you have trouble paying for medicines?: No Do you have trouble getting transportation to medical appointments?: No Do you have trouble paying your heating and electricity bill?: No Do you have trouble taking care of your child, family member or friend?: No Do you have trouble with day-to-day activities such as bathing, preparing meals, shopping, managing finances, etc.?: No Are you currently unemployed and looking for a job?: No Are you interested in more education?: No Please select the resources that you would like help with: None Currently or been in a relationship where the following occur: No concerns reported THRIVE Score: 0 AUDIT C Alcohol Use Questionnaire (AUDIT-C) 1. How often do you have a drink containing alcohol?: Monthly or less 2. How many drinks containing alcohol do you have on a typical day when you are drinking?: 1 or 2 3. How often do you have six or more drinks on one occasion?: Never Total Score: 1 BUFFY-7 AMB Questionnaire BUFFY-7 Date BUFFY - 7 assessed: 01/03/25 Feeling nervous, anxious, or on edge: 0 = Not at all Not being able to stop or control worryin = Not at all Worrying too much about different things: 0 = Not at all Trouble relaxin = Not at all Being so restless that it is hard to sit still: 0 = Not at all Becoming easily annoyed or irritable: 0 = Not at all Feeling afraid as if something awful might happen: 0 = Not at all Total BUFFY-7 score (0-4 normal; 5-9 mild; 10-14 moderate; 15-21 severe): 0 Source: Developed by Drs. Fernando Sullivan, Mayra Boogie, Matheus Rosas and colleagues, with an educational alexey from [employer]. BUFFY-7 Assessment Billing BUFFY-7 Assessment Tool: BUFFY-7 Assessment 38944 Review of Systems Const All systems reviewed & are unremarkable except as noted in HPI and below Reports no additional complaints Eyes Reports no additional complaints ENT Reports no additional complaints Card Reports no additional complaints Resp Reports no additional complaints GI Reports no additional complaints Reports no additional complaints Physical exam (Primary Care) Vital Signs: Last Vital Signs Temp 98.6 F 01/03/25 14:04 Pulse 62 01/03/25 14:04 Resp 18 01/03/25 14:04 BP 114/72 01/03/25 14:04 Pulse Ox 99 01/03/25 14:04 Oxygen Delivery Method Room Air 01/03/25 14:04 BMI result Body Mass Index 25.5 Tobacco/Smoking Status: Tobacco use Status Tobacco use date assessed 01/03/25 01/03/25 14:06 Patient Tobacco Use Status Never used Tobacco 01/03/25 14:06 e-Cigarette/Vaping Use Never Used 01/03/25 14:06 PHQ-9: PHQ-9 Score PHQ-9: Total score 0 01/03/25 14:15 Depression Screening Interpretation: Negative Thrive Assessment: Date of Thrive Assessment Date Thrive assessed 01/03/25 01/03/25 14:06 Currently or been in a relationship where the following occur: No concerns reported Const General: no acute distress HENMT Head: Yes normal to inspection Ears: hearing grossly normal bilaterally Face and sinus: Yes normal facial exam Eyes Other: Right upper lid erythema and induration Visual Guillaume: normal visual guillaume by confrontation Conjunctivae: conjunctivae normal Pupils: Equal, round and reactive pupils present EOM: EOMs intact bilaterally Neck Neck: Yes no lymphadenopathy and Yes supple Resp Effort & Inspection: normal respiratory effort Auscultation: clear to auscultation bilaterally Cardio Rhythm: regular rhythm Heart sounds: S1 normal heart sound present and S2 normal heart sound present GI Inspection: Yes normal to inspection Palpation (GI): Soft to palpation Percussion: Yes normal to percussion Auscultation: normal bowel sounds Neuro Cranial nerves: Yes Equal, round and reactive pupils present Coding Level of Care Code Est Pt Prev Care 18-39y(47259) Diagnoses Annual physical exam Z00.00 Additional Codes BUFFY-7 Assessment Billing - BUFFY-7 Assessment Tool: BUFFY-7 Assessment [id number] ([id number]) PHQ-9 - 71173 - PHQ-9 Billing: Yes ([id number]) Assessment & Plan Assessment & Plan (1) Annual physical exam: Code(s): Z00.00 - Encounter for general adult medical examination without abnormal findings Category: Medical Plan: Well-balanced diet regular physical activity discussed with the patient he will return for fasting blood work Orders: Orders Comprehensive [place]. Panel Fast Today R73.9 - Hyperglycemia, unspecified, Z00.00 - Encounter for general adult medical examination without abnormal findings Complete Blood Count Auto Diff Today R73.9 - Hyperglycemia, unspecified, Z00.00 - Encounter for general adult medical examination without abnormal findings UA w Microscopic Today R73.9 - Hyperglycemia, unspecified, Z00.00 - Encounter for general adult medical examination without abnormal findings Lipid Panel Today R73.9 - Hyperglycemia, unspecified, Z00.00 - Encounter for general adult medical examination without abnormal findings Hemoglobin A1c Today R73.9 - Hyperglycemia, unspecified, Z00.00 - Encounter for general adult medical examination without abnormal findings
== END 2025-01-03 14:39 | disposition home or self-care (01) ==
LOC: HO.HMCC 13:42
PROVIDERS: Visit Provider Internal Medicine
DX: Z00.00 Encounter for general adult medical examination without abnormal findings (principal)

== ENCOUNTER → 2025-01-03 13:41 | Outpatient (BNVA) | payer BC, SELFPAY | PROVIDERS: Visit Provider Internal Medicine | DX: Z00.00 Encounter for general adult medical examination without abnormal findings (principal) | CPT/HCPCS: 96127 ==

== ENCOUNTER 2025-01-08 09:30 | Outpatient (REF) | payer BC, SELFPAY ==
[2025-01-08 11:40] LABS: MANUAL DIFF FLAG NO
[2025-01-08 11:45] LABS: Basophils Absolute Auto 0.1 X10*3/uL (0.0-0.2); Basophils Percent Auto 0.7 % (0-2); Eosinophils Absolute Auto 0.1 X10*3/uL (0.0-0.4); Eosinophils Percent Auto 1.1 % (0-4); Hematocrit 45.2 % (42.0-52.0); Hemoglobin 15.7 g/dl (14.0-18.0); Imm Gran Abs Auto 0.01 X10*3/uL (0.00-0.03); Imm Gran Pct Auto 0.1 % (0.0-0.4); Lymphocytes Percent Auto 27.8 % (20-40); Mean Corpuscular HGB Conc 34.7 g/dl (31.0-36.0); Mean Corpuscular Hemoglobin 30.1 pg (27.0-33.0); Mean Corpuscular Volume 86.8 fL (80.0-98.0); Mean Platelet Volume 10.6 fL (9.4-12.4); Monocytes Absolute Auto 0.5 X10*3/uL (0.1-1.2); Monocytes Percent Auto 7.7 % (2-11); Neutrophils Absolute Auto 4.4 x10*3/uL (2.0-8.3); Neutrophils Percent Auto 62.6 % (45-73); Platelet Count 210 X10*3/uL (160-400); Red Blood Count 5.21 X10*6/uL (4.60-5.80); Red Cell Distribution Width 12.6 % (11.0-16.0); White Blood Count 7.1 X10*3/uL (4.8-10.8)
[2025-01-08 11:56] LABS: Alanine Aminotransferase 27 U/L (0-40); Albumin Level 4.5 g/dL (3.5-5.0); Alkaline Phosphatase 75 U/L (39-117); Anion Gap 13 (12-20); Aspartate Amino Transferase 28 U/L (5-37); Blood Urea Nitrogen 12 mg/dL (9-16); Calcium 9.6 mg/dL (8.4-10.2); Carbon Dioxide 28 mmol/L (22-29); Chloride 105 mmol/L (96-108); Cholesterol 138 mg/dL (<200); Estimated Average Glucose 94 mg/dL; Estimated Glomerular Filt Rate > 60; Glucose Fasting 87 mg/dL (60-99); HDL Cholesterol 44 mg/dL (>40); Hemoglobin A1C 126.7353 umol/L; Hemoglobin A1c % 4.9 % (<6.0); LDL Cholesterol Calculated 82 mg/dL (<100); Potassium 4.1 mmol/L (3.3-5.1); Sodium 142 mmol/L (135-145); Total Hemoglobin (HGBA1C) 4159.7401 umol/L; Total Protein 7.2 g/dL (6.5-8.0); Triglycerides 60 mg/dL (<150)
[2025-01-08 11:58] LABS: Appearance Urine Clear; Color Urine Yellow; Glucose Urine UA Negative (Negative); Leukocyte Esterase Urine Negative (Negative); Nitrite Urine Negative (Negative); Specific Gravity - Urine 1.025 (1.005-1.025); Urine Blood Negative (Negative); Urine Ketones Trace mg/dL (Negative); Urine Protein Negative (Neg-Trace)
[2025-01-08 12:05] LABS: Bacteria Urine None Seen (None Seen); Hyaline Casts Urine 0-2 /LPF (0-2); RBC Urine 0-2 /HPF (0-2); Squamous Epithelial Cell Urine 0-2 /HPF (0-2); WBC Urine 0-5 /HPF (0-5)
== END 2025-01-08 09:31 | disposition home or self-care (01) ==
LOC: HO.HMGCLDS 09:30
PROVIDERS: PCP Internal Medicine; Visit Provider Internal Medicine
DX: Z00.00 Encounter for general adult medical examination without abnormal findings (principal); R73.9 Hyperglycemia, unspecified; Z13.6 Encounter for screening for cardiovascular disorders
CPT/HCPCS: 36415; 80053; 80061; 81001; 83036; 85025

== ENCOUNTER 2025-08-16 08:04 | Outpatient (AMB) | payer BC, SELFPAY ==
--- OUTSIDE RECORDS SUMMARY | 2025-08-16 08:18 | XMS_ITS ---
Author Name [facility] Organization Unknown History of Medication Use Medication Directions Dispensed Refills Start Date End Date Stat us Amoxicillin/Potassium Clav (Augmentin 875 Mg-125) 1 TAB Tab 03/26/2025 active Chlorhexidine Gluconate (Peridex) 473 ML Mouthwash 03/26/2025 active Problems Problem Status Onset Date Problem Type Date of Resoluti on Source Complex laceration of face active ProblemAct CTBRISTOL Encounters Encounter Type Encounter Reason Primary Diagnosis Location Date Emergency FACE INJURY HOCKEY LACERATION W/ O FOREIGN BODY OF OTH PART OF HEAD, INIT ENCNTR [facility] 03/26/2025 Care Team Organization Name Specialty Phone Email Start Date End Da te [facility] 03/27/20252024 [facility] PCP VERIFY Primary Care [facility] 03/26/2025
[2025-08-16 08:23] VITALS: BP 110/70; PULSE 99; TEMP 36.8; O2SAT 99; BMI 25.4
--- NOTE | 2025-08-16 08:23 | AM.OFFWIN_ITS ---
Intake Vital Signs 08/16/25 08:23 Height 5 ft 9 in Weight 172 lb BMI 25.4 BP 110/70 Blood Pressure Location Rt brachial Position Sitting Pulse 99 Pulse Source Pulse Oximeter Temp 98.2 F Temp Source Oral Pulse Oximetry (%) 99 Oxygen Delivery Method Room Air Intake Visit Reasons: EP congestion and cough Intake Note: Patient presents c/o chest congestion, left side nasal congestion, cough since last night. Patient Tobacco Use Status: Never used Tobacco Allergies acetaminophen (From Tylenol) Allergy (Verified 08/16/25 08:25) Rash HPI HPI Comments History of Present Illness Details History - The patient is a 35 year old male pres enting with symptoms of an upper respiratory infection that began yesterday with a cough. - He reports his symptoms worsened this morning and now include pain throughout the chest with coughing, throat swelling, and difficulty swallowing. - He also notes sinus pain and unilatera l nasal blockage. - The patient denies fever, diarrhea, or vomiting. - He has not taken any [id number] medications for his symptoms. - He reports exposure to illness, as fiv e out of ten people are sick in his workplace. - Past medical history is significant fo r asthma as a child. - He is not a smoker. - He denies CP, SOB, abd pain, n/v/d. Physical Exam General: Cooperative, healthy appearing, comfortable and no acute distress Orientation/consciousness: Patient oriented x3 Limitations: No limitations Head: Normal to inspection Ears: Hearing grossly normal bilaterally, external ears normal and TM's normal bilaterally Nose: Normal external nose present, normal nares present, and no nasal discharge present. Face and sinus: Sinuses nontender to palpation. Mouth: Normal oral and palatal mucosa present and moist mucous membranes noted. Throat: Throat swelling noted, making it hard to swallow. Tonsils normal. Uvula is midline. Posterior oropharynx with erythema and no exudates. Eyes: Appearance normal, both eyes and all related structures Neck: Normal visual inspection, full ROM. No lymphadenopathy noted. Respiratory: Clear to auscultation bilaterally. Normal respiratory effort, able to speak in complete sentences. No respiratory distress, not tachypneic, no tripod positioning and no use of accessory muscles. Cardiovascular: Regular rate and rhythm. Normal S1 and S2. No m/r/g noted. Skin: No rashes or lesions noted Patient was informed and verbally consented to the use of an ambient scribe for clinic note documentation during this visit [facility] Medical History Patellar sleeve fracture of left knee No known health problems Surgical History No pertinent past surgical history Family History Father Brain aneurysm, Onset Age: 50 Mother Colon cancer, Onset Age: 55 Breast cancer Social History (Updated 01/03/25 @ 15:12 by Kylie Enriquez MD) Household Members Other:: exercise weekly, , 3 daughters (under 10) Housing: House Patient Tobacco Use Status: Never used Tobacco e-Cigarette/Vaping Use: Never Used service: No Current occupational status: employed Cognitive needs: No Hearing needs: No Vision needs: No Review of Systems Const All systems reviewed & are unremarkable except as noted in HPI and below Physical Exam Vital Signs: Last Vital Signs Temp 98.2 F 08/16/25 08:23 Pulse 99 08/16/25 08:23 BP 110/70 08/16/25 08:23 Pulse Ox 99 08/16/25 08:23 Oxygen Delivery Method Room Air 08/16/25 08:23 BMI result Body Mass Index 25.4 Assessment & Plan Assessment & Plan (1) Cough: Code(s): R05.9 - Cough, unspecified Qualifiers: Cough type: acute Qualified Code(s): R05.1 - Acute cough Plan Most likely Acute Upper Respiratory Infection vs covid vs flu vs RSV vs viral illness plan - A swab for COVID-19, influenza A/B, and RSV has been performed to determine the specific etiology. - Prescriptions for a cough medicine pill, a decongestant, and a nasal spray will be sent to the pharmacy for symptomatic relief. - If the influenza test is positive, an antiviral medication (oseltamivir) can be prescribed. - The patient will be contacted with the test results later today. - A work note was discussed but deemed unnecessary unless absence exceeds three days. Orders: Orders SARS-CoV2/FLU/RSV Today R09.89 - Other specified symptoms and signs involving the circulatory and respiratory systems Medications: New cetirizine-pseudoephedrine 5-120 mg ER 1 tab PO BID 14 tabs 0RF 7 days benzonatate 100 mg PO bid-tid PRN 21 caps 0RF Cough 7 days fluticasone propionate 50 mcg/actuation administer into each nostril 1 spray intranasal Q12H 16 grams 0RF Coding Level of Care Code Est Pt Level 3 (29568) Diagnoses Acute cough R05.1 Cough type: acute
== END 2025-08-16 08:43 | disposition home or self-care (01) ==
PROVIDERS: PCP Internal Medicine; Visit Provider Physician Assistant Medical
DX: R05.1 Acute cough (principal)

== ENCOUNTER 2025-08-16 08:04 | Outpatient (REF) | payer BC, SELFPAY ==
[2025-08-16 13:20] LABS: Resp Syncy Virus RNA Qual PCR NEGATIVE (Negative); SARS COV2 PCR INHOUSE NEGATIVE (Negative)
== END 2025-08-16 08:05 | disposition home or self-care (01) ==
LOC: HO.LAB 08:04
PROVIDERS: Physician Assistant Medical; PCP Internal Medicine
DX: Z03.818 Encounter for observation for suspected exposure to other biological agents ruled out (principal)
CPT/HCPCS: 87637